=== PATIENT | male | born 1955 | race Caucasian/White ===

== ENCOUNTER → 2017-11-29 | Outpatient (CLI) | payer BC ==
[~2017-11-29] MED LIST: ATOR20 PO; CYCL10 PO; GABA100; IBUP800 PO; LISI20 PO; ROSU5; TRAM50 PO
== END | disposition home or self-care (01) ==
LOC: PLD 07:57 → LAB SHORT 07:57
DX: C43.62 Malignant melanoma of left upper limb, including shoulder (principal)
CPT/HCPCS: 88305

== ENCOUNTER → 2020-06-17 | Outpatient (CLI) | payer MEDICARE | END | disposition home or self-care (01) | LOC: LAB SHORT 13:02 → PLD 13:02 | DX: D04.5 Carcinoma in situ of skin of trunk (principal) | CPT/HCPCS: 88305 ==

== ENCOUNTER → 2020-07-08 | Outpatient (CLI) | payer MEDICARE | END | disposition home or self-care (01) | LOC: LAB SHORT 11:12 → PLD 11:12 | DX: D48.5 Neoplasm of uncertain behavior of skin (principal) | CPT/HCPCS: 88304 ==

== ENCOUNTER → 2021-02-09 | Outpatient (CLI) | payer MEDICARE | END | disposition home or self-care (01) | LOC: LAB 10:59 → LAB SHORT 10:59 | DX: D18.01 Hemangioma of skin and subcutaneous tissue (principal); L82.1 Other seborrheic keratosis | CPT/HCPCS: 88305 ==

== ENCOUNTER → 2021-03-24 | Outpatient (CLI) | payer MEDICARE | END | disposition home or self-care (01) | LOC: LAB SHORT 11:48 | DX: L91.8 Other hypertrophic disorders of the skin (principal); R23.4 Changes in skin texture | CPT/HCPCS: 88304 ==

== ENCOUNTER 2021-06-15 06:27 | Day surgery (SDC) | payer MEDICARE ==
[~2021-06-15] VITALS: Ht 167.6 cm; Wt 101.4 kg
== END 2021-06-15 09:12 | disposition home or self-care (01) ==
LOC: ORSCSDS 06:27
PROVIDERS: Surgery
PROC: 0WQF0ZZ Repair Abdominal Wall, Open Approach (ICD-10-PCS; principal; 2021-06-15 07:30)
DX: K42.9 Umbilical hernia without obstruction or gangrene (principal); K21.9 Gastro-esophageal reflux disease without esophagitis; E66.9 Obesity, unspecified; Z68.36 Body mass index [BMI] 36.0-36.9, adult; Z79.899 Other long term (current) drug therapy
CPT/HCPCS: J0690; J1100; J1885; J2370; J2405; J2704; J3010; J7120

== ENCOUNTER 2021-10-17 17:05 | Observation (INO) | payer MEDICARE ==
[~2021-10-17] VITALS: Ht 175.3 cm; Wt 99.5 kg
[~2021-10-17 17:05] MED LIST changes: -GABA100; +GABA100 PO
[2021-10-17] MEDS ORDERED: TRAM50 PO (17:48)
[2021-10-17] MEDS ORDERED: IBU800 MG PO (17:49)
[2021-10-17] MEDS ORDERED: TRAZ100 PO (17:49)
[2021-10-17] MEDS ORDERED: NEXLIZET 180-11 EACH PO (17:49)
[2021-10-17 18:42] LABS: Alanine Aminotransfer (ALT/SGP 24 U/L (12-78); Albumin, Blood 3.5 g/dL (3.4-5.0); Albumin/Globulin Ratio 1.1 (0.8-1.8); Alk Phos 68 U/L (50-136); Anion Gap 6 mmol/L (6-16); Aspartate Aminotrans (AST/SGOT 20 U/L (12-37); Bilirubin, Total 0.8 mg/dL (0.1-1.0); Blood Urea Nitrogen 12 mg/dL (8-24); Bun/Creatinine Ratio 12.8 (12.0-20.0); CO2, Blood 26 mmol/L (21-32); Calcium, Blood 8.5 mg/dL (8.5-10.1); Chloride, Blood 107 mmol/L (98-108); Creatinine, Blood 0.94 mg/dL (0.60-1.20); Globulin, Blood 3.1 g/dL (2.2-4.0); Glomerular Filtration Rate >60 (60-); Glucose, Blood 102 mg/dL (70-99); Sodium, Blood 139 mmol/L (136-145); Total Protein, Blood 6.6 g/dL (6.4-8.2)
[2021-10-17 18:58] LABS: BASOPHILS ABSOLUTE AUTO 0.02 K/mm3 (0.00-0.23); BASOPHILS PERCENT AUTO 0 % (0-2); EOSINOPHILS ABSOLUTE AUTO 0.02 K/mm3 (0.00-0.68); EOSINOPHILS PERCENT AUTO 0 % (0-6); Hematocrit 46.4 % (37.0-53.0); Hemoglobin 15.4 g/dL (13.5-17.5); IMMATURE GRAN ABSOLUTE AUTO 0.05 K/mm3 (0.00-0.10); IMMATURE GRAN PERCENT AUTO 0 % (0-1); LYMPHOCYTES ABSOLUTE AUTO 1.58 K/mm3 (0.84-5.20); LYMPHOCYTES PERCENT AUTO 11 % (21-46); MONOCYTES ABSOLUTE AUTO 0.52 K/mm3 (0.16-1.47); MONOCYTES PERCENT AUTO 4 % (4-13); Mean Corpuscular HGB 30.7 pg (26.0-34.0); Mean Corpuscular HGB Conc 33.2 g/dL (31.5-36.5); Mean Corpuscular Volume 92 fL (80-100); Mean Platelet Volume 9.4 fL (9.1-12.4); NEUTROPHILS ABSOLUTE AUTO 11.88 K/mm3 (1.96-9.15); NEUTROPHILS PERCENT AUTO 85 % (41-73); Platelet Count 333 K/mm3 (150-400); RDW Coefficient Variation 12.5 % (11.7-14.2); RDW Standard Deviation 42.8 fL (35.1-46.3); Red Blood Cell Count 5.02 M/mm3 (4.30-5.90); White Blood Cell Count 14.07 K/mm3 (4.00-11.30)
[2021-10-17 19:28] LABS: Influenza A, PCR NEGATIVE (NEGATIVE); Influenza B, PCR NEGATIVE (NEGATIVE); Resp Syncytial Virus, PCR NEGATIVE (NEGATIVE); SARS-Cov-2 (COVID-19) PCR, MMC NEGATIVE (NEGATIVE)
--- NOTE | 2021-10-17 22:00 | NUR ---
ASSUMED CARE PATIENT ARRIVED TO ICU 7 FROM ER ALERT AND ORIENTED X 4 AND ON ROOM AIR. PATIENT WAS ABLE TO STAND AND SELF TRANSFER TO ICU BED. TONGUE IS SWOLLEN AND SPEECH IS SLIGHTLY IMPAIRED D/T THIS, BUT STILL ABLE TO UNDERSTAND PATIENT AND SPO2 MAINTAINED IN MID 90'S. BELONGINGS PLACED IN CUPBOARD COMPARTMENT UPON ARRIVAL. REPORT COMPLETED WITH ED NURSE.
[2021-10-17] MEDS ORDERED: Lopressor 25 mg25 MG PO (22:14)
[2021-10-18 03:53] LABS: BASOPHILS PERCENT AUTO 0 % (0-2); EOSINOPHILS PERCENT AUTO 0 % (0-6); Hematocrit 45.9 % (37.0-53.0); IMMATURE GRAN ABSOLUTE AUTO 0.02 K/mm3 (0.00-0.10); IMMATURE GRAN PERCENT AUTO 0 % (0-1); LYMPHOCYTES ABSOLUTE AUTO 0.67 K/mm3 (0.84-5.20); LYMPHOCYTES PERCENT AUTO 7 % (21-46); MONOCYTES ABSOLUTE AUTO 0.08 K/mm3 (0.16-1.47); MONOCYTES PERCENT AUTO 1 % (4-13); Mean Corpuscular HGB 30.4 pg (26.0-34.0); Mean Corpuscular HGB Conc 32.7 g/dL (31.5-36.5); Mean Corpuscular Volume 93 fL (80-100); Mean Platelet Volume 9.5 fL (9.1-12.4); NEUTROPHILS ABSOLUTE AUTO 9.45 K/mm3 (1.96-9.15); NEUTROPHILS PERCENT AUTO 92 % (41-73); Platelet Count 316 K/mm3 (150-400); RDW Coefficient Variation 12.4 % (11.7-14.2); Red Blood Cell Count 4.93 M/mm3 (4.30-5.90); White Blood Cell Count 10.22 K/mm3 (4.00-11.30)
[2021-10-18 04:17] LABS: Alanine Aminotransfer (ALT/SGP 26 U/L (12-78); Albumin, Blood 3.3 g/dL (3.4-5.0); Albumin/Globulin Ratio 0.8 (0.8-1.8); Alk Phos 66 U/L (50-136); Anion Gap 5 mmol/L (6-16); Aspartate Aminotrans (AST/SGOT 24 U/L (12-37); Bilirubin, Total 0.7 mg/dL (0.1-1.0); Blood Urea Nitrogen 13 mg/dL (8-24); Bun/Creatinine Ratio 15.2 (12.0-20.0); CO2, Blood 25 mmol/L (21-32); Calcium, Blood 9.1 mg/dL (8.5-10.1); Chloride, Blood 108 mmol/L (98-108); Creatinine, Blood 0.86 mg/dL (0.60-1.20); Glomerular Filtration Rate >60 (60-); Glucose, Blood 155 mg/dL (70-99); Potassium, Blood 4.6 mmol/L (3.5-5.5); Sodium, Blood 138 mmol/L (136-145); Total Protein, Blood 7.3 g/dL (6.4-8.2)
--- NOTE | 2021-10-18 05:45 | NUR ---
SHIFT SUMMARY PATIENT DESATTED TO 89% WHILE SLEEPING; 2LPM VIA NC PLACED ON PATIENT WITH SPO2 IMPROVEMENT TO MID 90'S. O2 REMOVED ONCE PATIENT WAS AWAKE THIS MORNING. PATIENT REMAINED ALERT AND ORIENTED X 4 AND USED CALL LIGHT APPROPRIATELY. PATIENT WAS ABLE TO AMBULATE WITHOUT ASSISTANCE FROM BED TO TOILET AND BACK WITHOUT DIFFICULTY. TONGUE AND MOUTH SWELLING HAS GREATLY IMPROVED WITH MINIMAL EFFECT ON SPEECH. NO PRN MEDICATIONS GIVEN DURING SHIFT. LUNG SOUNDS REMAINED CLEAR AND PATIENT DENIED ANY BREATHING DIFFICULTIES. BEDSIDE SWALLOW EVAL COMPLETED AT BEGINNING OF SHIFT AND PASSED; COMPLETED TO ENSURE SAFE ADMINISTRATION OF MEDICATIONS WITH WATER. PATIENT STILL ON ICE CHIPS ONLY OTHERWISE. BT STILL HYPERACTIVE T/O WITH NO BM THIS SHIFT. SKIN REMAINS C/D/I. HR INCREASED TO 130'S WITH AMBULATION BUT QUICKLY RESOLVED WITH REST. RHYTHM REMAINED SINUS WITH OCCASSIONAL PVC'S. NO OTHER MAJOR CHANGES DURING SHIFT.
--- NOTE | 2021-10-18 07:25 | NUR ---
ASSUMPTION OF CARE RECEIVED REPORT FROM ORION MEDEL, ASSUMED CARE OF PATIENT. PATIENT SITTING UP IN BED, A/O. CLEAR SPEECH. DENIED DISCOMFORTS AT THIS TIME. MD AT BEDSIDE DISCUSSING PLAN FOR THE DAY. VERBALIZED HE WILL ORDER PATIENT A DIET, ASSESS HOW PATIENT TOLERATES EATING AND WILL PLAN FOR DISCHARGE LATER TODAY DEPENDING ON PATIENT'S STATUS AND MEDICATION CHANGES. PATIENT VERBALIZED UNDERSTANDING OF PLAN. AWAITING PHYSICIAN ORDERS.
--- NOTE | 2021-10-18 09:40 | NUR ---
BREAKFAST PATIENT TOLERATED BREAKFAST EATING 100% WITH NO DIFFICULTIES. NO SWELLING NOTED TO TONGUE OR THROAT, PATIENT DENIED SWELLING TO THROAT AND STATED IS FEELING BACK TO NORMAL. AM MEDICATIONS GIVEN ORDERED. VITALS REMAIN STABLE. CALL LIGHT WITHIN REACH.
[2021-10-18] MEDS ORDERED: EPIPEN0.3 MG/0.3 IM (11:38)
[2021-10-18] MEDS ORDERED: FAMO20 PO (11:38)
[2021-10-18] MEDS ORDERED: DIPH50 PO (11:38)
[2021-10-18] MEDS ORDERED: MEDROL4 M1 PO (11:41)
--- NOTE | 2021-10-18 12:42 | NUR ---
DISCHARGE PATIENT DISCHARGED TO HOME. 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 PRESCRIPTIONS CALLED INTO [facility] PER PATIENT'S REQUEST WITH SPECIFIC INSTRUCTIONS GIVEN TO PHARMACIST REGARDING MEDICATION DOSES. BILAT ARM PERIPHERAL IV'S D/C'D WITH CATHETERS INTACT. VITALS REMAINED STABLE AND NO SWELLING WAS NOTED ORALLY TO TONGUE OR THROAT. FOLLOW UP APPOINTMENT WAS ALSO MADE FOR PATIENT AT [facility] WITH DIRECTIONS FOR THIS APPOINTMENT.
== END 2021-10-18 12:50 | disposition home or self-care (01) ==
LOC: ER 17:05 → ICUW 17:06 → ICUE 17:06
PROVIDERS: Emergency Medicine; ADMIT Internal Medicine
DX: T78.3XXA Angioneurotic edema, initial encounter (principal); T46.4X5A Adverse effect of angiotensin-converting-enzyme inhibitors, initial encounter; I10 Essential (primary) hypertension; I25.10 Atherosclerotic heart disease of native coronary artery without angina pectoris; F17.210 Nicotine dependence, cigarettes, uncomplicated; Z20.822 Contact with and (suspected) exposure to COVID-19; Y84.8 Other medical procedures as the cause of abnormal reaction of the patient, or of later complication, without mention of misadventure at the time of the procedure; Z88.8 Allergy status to other drugs, medicaments and biological substances; Z85.820 Personal history of malignant melanoma of skin; Z87.442 Personal history of urinary calculi
CPT/HCPCS: 0241U; 36415; 80053; 85025; 96372; 96376; A9270; G0378; J0171; J1200; J1650; J2930

== ENCOUNTER 2022-01-11 09:22 | Observation (INO) | payer MEDICARE ==
[~2022-01-11] VITALS: Ht 167.6 cm; Wt 97.5 kg
[~2022-01-11 09:22] MED LIST changes: +DIPH50 PO; +EPIPEN0.3 MG/0.3 IM; +FAMO20 PO; +IBU800 MG PO; +Lopressor 25 mg25 MG PO; +MEDROL4 M1 PO; +NEXLIZET 180-11 EACH PO; +TRAZ100 PO
[2022-01-11 10:23] LABS: BASOPHILS ABSOLUTE AUTO 0.03 K/mm3 (0.00-0.23); BASOPHILS PERCENT AUTO 0 % (0-2); EOSINOPHILS ABSOLUTE AUTO 0.22 K/mm3 (0.00-0.68); EOSINOPHILS PERCENT AUTO 3 % (0-6); Hemoglobin 16.9 g/dL (13.5-17.5); IMMATURE GRAN ABSOLUTE AUTO 0.03 K/mm3 (0.00-0.10); IMMATURE GRAN PERCENT AUTO 0 % (0-1); LYMPHOCYTES ABSOLUTE AUTO 1.95 K/mm3 (0.84-5.20); LYMPHOCYTES PERCENT AUTO 28 % (21-46); MONOCYTES PERCENT AUTO 9 % (4-13); Mean Corpuscular HGB Conc 33.1 g/dL (31.5-36.5); Mean Corpuscular Volume 91 fL (80-100); Mean Platelet Volume 9.2 fL (9.1-12.4); NEUTROPHILS ABSOLUTE AUTO 4.05 K/mm3 (1.96-9.15); NEUTROPHILS PERCENT AUTO 59 % (41-73); Platelet Count 299 K/mm3 (150-400); RDW Coefficient Variation 12.4 % (11.7-14.2); RDW Standard Deviation 41.2 fL (35.1-46.3); Red Blood Cell Count 5.63 M/mm3 (4.30-5.90); White Blood Cell Count 6.88 K/mm3 (4.00-11.30)
[2022-01-11 10:29] LABS: Alanine Aminotransfer (ALT/SGP 35 U/L (12-78); Albumin, Blood 3.7 g/dL (3.4-5.0); Alk Phos 74 U/L (50-136); Anion Gap 5 mmol/L (6-16); Aspartate Aminotrans (AST/SGOT 19 U/L (12-37); Bilirubin, Total 0.5 mg/dL (0.1-1.0); Blood Urea Nitrogen 15 mg/dL (8-24); Bun/Creatinine Ratio 16.1 (12.0-20.0); CO2, Blood 27 mmol/L (21-32); Calcium, Blood 9.1 mg/dL (8.5-10.1); Chloride, Blood 107 mmol/L (98-108); Creatinine, Blood 0.93 mg/dL (0.60-1.20); Globulin, Blood 3.8 g/dL (2.2-4.0); Glomerular Filtration Rate >60 (60-); Glucose, Blood 108 mg/dL (70-99); Potassium, Blood 4.1 mmol/L (3.5-5.5); Sodium, Blood 139 mmol/L (136-145); Total Protein, Blood 7.5 g/dL (6.4-8.2)
[2022-01-11] MEDS ORDERED: EZET10 PO (10:31)
[2022-01-11] MEDS ORDERED: TAMS.4ER PO (10:32)
[2022-01-11 10:35] LABS: Source, Urine Clean Catch
[2022-01-11 10:46] LABS: Appearance, Urine Clear (Clear); Bilirubin, Urine Neg (Neg); Blood, Urine Neg (Neg); Color, Urine Yellow (P-Yellow); Glucose Qualitative, Urine Neg (Neg); Ketones, Urine Neg (Neg); Leukocyte Esterase, Urine Neg (Neg); Nitrite, Urine Neg (Neg); Protein, Urine Neg (Neg); Specific Gravity, Urine 1.015 (1.003-1.022); Urobilinogen, Urine NORM (Normal)
--- NOTE | 2022-01-11 18:36 | NUR ---
PATIENT ARRIVED TO ROOM AT 1755. ALERT AND ORIENTED. INDEPENDENT IN THE ROOM. REPORTS SOME RIGHT FLANK PAIN. RESTING ON BED. NPO AFTER MIDNIGHT FOR PLANNED IR PROCEDURE FOR RIGHT KIDNEY CYST TOMORROW 01/12/22. WILL REPORT TO CONTACT CENTER DIRECTOR RN.
--- NOTE | 2022-01-12 04:00 | NUR ---
SHIFT SUMMARY A/O X4. VITAL SIGNS STABLE. PAIN CONTROLLED WITH MEDICATIONS PER EMAR. IND IN ROOM. TOLERATED DINNER WITH NO N/V. NPO SINCE MIDNIGHT. PT VOIDING WELL. NO ACUTE CHANGES OVER NIGHT WILL CONTINUE TO MONITOR AND REPORT TO ONCOMING RN.
--- NOTE | 2022-01-12 16:30 | NUR ---
PT [facility] FOR PROCEDURE VIA W/C
--- NOTE | 2022-01-12 17:30 | NUR ---
POST DRAINAGE ARRIVES TO ROOM & TRANSFERS FROM WC TO BED w/ SBA. DRAIN SITE CDI w/ 2 SMALL PUNCTURE SITES TO R FLANK. NO BRUISING, REDNESS, OR DRAINAGE NOTED. ICE WATER & JELLO GIVEN.
--- NOTE | 2022-01-12 18:19 | NUR ---
UPDATE PT IS DOING WELL & REQUESTS TO GO HOME. TOLERATING BITES OF FOOF. DRAINAGE SITE WNL. CALL OUT TO MD. WILL DC LATER THIS EVENING.
--- NOTE | 2022-01-12 18:48 | NUR ---
DISCHARGE PT IS VERY EXCITED FOR DC HOME. TOLERATING BITES OF FOOD. VSS. AMBULATING EASILY. STATES PT ALREADY HAS AN APPOINTMENT w/ ONCOLOGY MONDAY & WILL CALL FOR F/U w/ [facility] TOMORROW. ESCORTED OUT VIA WC.
== END 2022-01-12 18:51 | disposition home or self-care (01) ==
LOC: ER 09:22 → SURS 09:23
PROVIDERS: Anesthesiology; ADMIT Family Medicine
DX: N28.1 Cyst of kidney, acquired (principal); R91.8 Other nonspecific abnormal finding of lung field; K22.89 Other specified disease of esophagus; Z88.8 Allergy status to other drugs, medicaments and biological substances; F17.290 Nicotine dependence, other tobacco product, uncomplicated; I10 Essential (primary) hypertension
CPT/HCPCS: 36415; 71260; 74177; 76937; 80053; 81003; 83690; 85025; 99152; 99153; A9270; C1769; C1894; J1170; J1885; J2250; J2405; J3010; J7030; J7040; Q9967

== ENCOUNTER → 2022-02-22 | Outpatient (CLI) | payer MEDICARE ==
[~2022-02-22] MED LIST changes: +EZET10 PO; +TAMS.4ER PO
== END | disposition home or self-care (01) ==
LOC: LAB SHORT 11:06 → PLD 11:06
DX: L85.9 Epidermal thickening, unspecified (principal)
CPT/HCPCS: 88305; 88312

== ENCOUNTER 2022-05-09 08:50 | Day surgery (SDC) | payer MEDICARE ==
[~2022-05-09] VITALS: Ht 170.2 cm; Wt 91.6 kg
[~2022-05-09 08:50] MED LIST changes: +ONDA4ODT SL; +PEPCID40 MG PO; +Percocet 5-3251 EACH PO
[2022-05-09] MEDS ORDERED: ACET500 PO (09:37)
--- NOTE | 2022-05-09 11:23 | NUR ---
Ambulatory in Day Surgery History, Chart, Medications and Allergies reviewed before start of procedure.Pre-Op teaching done. Pt verbalizes understanding. Discharged via wheelchair to private car for ride home.
--- NOTE | 2022-05-09 14:08 | NUR ---
LATE ENTRY: RADIOLOGY CALLED. REPORTED THAT TIP OF MEDIPORT IN RIGHT ATRIUM AND THAT THE RIGHT UPPER LOBE OF LUNG IS NOT INFLATED AT IT SHOULD BE. DR. MELO CALLED WITH REPORT. PT HAS RECENT H/O PNEUMONIA AND IS NOT SOB. ENCOURAGED IMPORATANCE OF C&DB AND IF ANYTHING CHANGES TO RETURN TO ER. Dressing to procedure site clean, dry, intact with no visible drainage, swelling, erythema or bruising noted. Discharge instructions reviewed with patient. Patient verbalizes understanding. Copy given to patient to take home. Discharged via wheelchair to private car for ride home.
== END 2022-05-10 00:27 | disposition home or self-care (01) ==
LOC: ORSCMMR 08:50 → ORD 10:00 → ORSCMMR 10:00
DX: C43.62 Malignant melanoma of left upper limb, including shoulder (principal); I25.10 Atherosclerotic heart disease of native coronary artery without angina pectoris; E78.5 Hyperlipidemia, unspecified; I10 Essential (primary) hypertension; Z79.899 Other long term (current) drug therapy; Z87.891 Personal history of nicotine dependence
CPT/HCPCS: 77001; A9270; C1788; J0690; J1100; J1642; J2001; J2250; J2405; J2704; J3010; J7120

== ENCOUNTER 2022-05-13 06:57 | Inpatient (IN) | payer MEDICARE ==
[~2022-05-13] VITALS: Ht 167.6 cm; Wt 88.3 kg
[~2022-05-13 06:57] MED LIST changes: +ACET500 PO
[2022-05-13 08:03] LABS: BASOPHILS ABSOLUTE AUTO 0.07 K/mm3 (0.00-0.23); BASOPHILS PERCENT AUTO 1 % (0-2); EOSINOPHILS ABSOLUTE AUTO 0.41 K/mm3 (0.00-0.68); EOSINOPHILS PERCENT AUTO 3 % (0-6); Hematocrit 49.7 % (37.0-53.0); Hemoglobin 16.5 g/dL (13.5-17.5); IMMATURE GRAN ABSOLUTE AUTO 0.09 K/mm3 (0.00-0.10); IMMATURE GRAN PERCENT AUTO 1 % (0-1); LYMPHOCYTES ABSOLUTE AUTO 2.59 K/mm3 (0.84-5.20); LYMPHOCYTES PERCENT AUTO 19 % (21-46); MONOCYTES ABSOLUTE AUTO 1.37 K/mm3 (0.16-1.47); MONOCYTES PERCENT AUTO 10 % (4-13); Mean Corpuscular HGB 29.6 pg (26.0-34.0); Mean Corpuscular HGB Conc 33.2 g/dL (31.5-36.5); Mean Corpuscular Volume 89 fL (80-100); NEUTROPHILS ABSOLUTE AUTO 8.81 K/mm3 (1.96-9.15); NEUTROPHILS PERCENT AUTO 66 % (41-73); Platelet Count 276 K/mm3 (150-400); RDW Coefficient Variation 12.6 % (11.7-14.2); RDW Standard Deviation 41.2 fL (35.1-46.3); Red Blood Cell Count 5.57 M/mm3 (4.30-5.90); White Blood Cell Count 13.34 K/mm3 (4.00-11.30)
[2022-05-13 08:24] LABS: Albumin, Blood 3.2 g/dL (3.4-5.0); Albumin/Globulin Ratio 0.7 (0.8-1.8); Bun/Creatinine Ratio 22.1 (12.0-20.0); Calcium, Blood 9.6 mg/dL (8.5-10.1); Creatinine, Blood 0.77 mg/dL (0.60-1.20); Globulin, Blood 4.3 g/dL (2.2-4.0); Potassium, Blood 3.8 mmol/L (3.5-5.5); Total Protein, Blood 7.5 g/dL (6.4-8.2)
[2022-05-13 08:45] LABS: Influenza A, PCR NEGATIVE (NEGATIVE); Influenza B, PCR NEGATIVE (NEGATIVE); Resp Syncytial Virus, PCR NEGATIVE (NEGATIVE); SARS-Cov-2 (COVID-19) PCR, MMC NEGATIVE (NEGATIVE)
--- NOTE | 2022-05-13 16:52 | NUR ---
ADMIT/SHIFT SUMMARY PATIENT ADMITTED FROM ER AT 1430. PATIENT SETTLED INTO ROOM. PATIENT ORIENTED TO CALL LIGHT AND TV CONTROL. PATIENT AT BEDSIDE DURING ADMISSION. ADMISSION COMPLETE. FLUIDS AND ABX STARTED. PATIENT DENIES PAIN, NAUSEA. PATIENT IS SHORT OF BREATH. PATIENT IS ON 3L VIA N/C, MAINTAINING SATS ABOVE 95%. CALLED RT FOR BREATHING TX, ADMINISTERED. PATIENT ALSO HAS HACKING, PRODUCTIVE COUGH. PATIENT HR HAS BEEN ELEVATED SINCE ADMISSION, 130-140. EVENING METOPROLOL GIVEN, NO EFFECT. NOTIFIED, NEW ORDERS. PATIENT IS IND IN ROOM. PATIENT IS EATING AND DRINKING WELL. PATIENT IS PLEASANT AND COOPERATIVE WITH CARE.
[2022-05-14 05:17] LABS: Hematocrit 46.6 % (37.0-53.0); Mean Corpuscular HGB 29.1 pg (26.0-34.0); Mean Corpuscular HGB Conc 32.2 g/dL (31.5-36.5); Mean Corpuscular Volume 90 fL (80-100); Mean Platelet Volume 9.1 fL (9.1-12.4); Platelet Count 240 K/mm3 (150-400); RDW Coefficient Variation 12.9 % (11.7-14.2); RDW Standard Deviation 42.8 fL (35.1-46.3); Red Blood Cell Count 5.16 M/mm3 (4.30-5.90); White Blood Cell Count 13.29 K/mm3 (4.00-11.30)
[2022-05-14 05:33] LABS: Bun/Creatinine Ratio 23.6 (12.0-20.0); Calcium, Blood 8.9 mg/dL (8.5-10.1); Creatinine, Blood 0.89 mg/dL (0.60-1.20)
--- NOTE | 2022-05-14 05:52 | NUR ---
SHIFT SUMMARY 67 YR M ADMITTED ON 05/13/22 FOR PNEUMONIA. FULL CODE. NO ACUTE CHANGES THIS SHIFT. PT IS STILL ON 3 L O2 BY NC AND HIS SATS ARE IN THE 90'S. HE HAS A HACKING COUGH OFF AND ON. HE HAS BEEN RECEIVING BREATHING TX'S FROM RT. HR WAS STAYING HIGH IN THE 130'S SO METOPROLOL WAS GIVEN AND HR CAME DOWN TO 106. CONTINUING W/ ABX Q6H. HE IS INDEPENDANT IN THE ROOM AND CALLS APPROPRIATELY FOR ASSISTANCE WHEN NEEDED. HE IS VERY PLEASANT AND COOPERATIVE WITH CARE.
--- NOTE | 2022-05-14 18:42 | NUR ---
SHIFT SUMMARY PTN A&O X4, PLEASANT. PRESENT SOME OF SHIFT. L AC PERIPHERAL LINE, GOOD ACCESS. IV ABX GIVEN. TELEMETRY SINUS TACHY 126 AT ONE POINT, RETURNED TO 90'S. O2 AT 3L NC, BASELINE AT HOME RA. REGULAR DIET, INDEPENDENT. PTN HAS HACKY PRODUCTIVE COUGH. TYLENOL ORDER FOR COMPLAINT OF JEREZ. UP TO CHAIR FOR PERIOD OF TIME. CONTINUE TO MONITOR.
[2022-05-15 05:29] LABS: BASOPHILS ABSOLUTE AUTO 0.05 K/mm3 (0.00-0.23); BASOPHILS PERCENT AUTO 1 % (0-2); EOSINOPHILS ABSOLUTE AUTO 0.42 K/mm3 (0.00-0.68); EOSINOPHILS PERCENT AUTO 4 % (0-6); Hematocrit 43.8 % (37.0-53.0); Hemoglobin 14.2 g/dL (13.5-17.5); IMMATURE GRAN ABSOLUTE AUTO 0.07 K/mm3 (0.00-0.10); IMMATURE GRAN PERCENT AUTO 1 % (0-1); LYMPHOCYTES ABSOLUTE AUTO 2.06 K/mm3 (0.84-5.20); LYMPHOCYTES PERCENT AUTO 19 % (21-46); MONOCYTES ABSOLUTE AUTO 1.53 K/mm3 (0.16-1.47); MONOCYTES PERCENT AUTO 14 % (4-13); Mean Corpuscular HGB 29.6 pg (26.0-34.0); Mean Corpuscular HGB Conc 32.4 g/dL (31.5-36.5); Mean Corpuscular Volume 91 fL (80-100); Mean Platelet Volume 9.3 fL (9.1-12.4); NEUTROPHILS ABSOLUTE AUTO 6.89 K/mm3 (1.96-9.15); NEUTROPHILS PERCENT AUTO 63 % (41-73); Platelet Count 217 K/mm3 (150-400); RDW Coefficient Variation 12.7 % (11.7-14.2); RDW Standard Deviation 42.8 fL (35.1-46.3); Red Blood Cell Count 4.79 M/mm3 (4.30-5.90); White Blood Cell Count 11.02 K/mm3 (4.00-11.30)
[2022-05-15 05:53] LABS: Albumin, Blood 2.4 g/dL (3.4-5.0); Anion Gap 7 mmol/L (6-16); Blood Urea Nitrogen 17 mg/dL (8-24); Bun/Creatinine Ratio 21.4 (12.0-20.0); CO2, Blood 27 mmol/L (21-32); Calcium, Blood 8.9 mg/dL (8.5-10.1); Chloride, Blood 104 mmol/L (98-108); Glomerular Filtration Rate 97 (60-); Glucose, Blood 113 mg/dL (70-99); Phosphorus, Blood 3.5 mg/dL (2.5-4.9); Potassium, Blood 3.7 mmol/L (3.5-5.5); Sodium, Blood 138 mmol/L (136-145)
--- NOTE | 2022-05-15 05:59 | NUR ---
SHIFT SUMMARY 67 YR M ADMITTED ON 05/13/22 FOR PNEUMONIA. FULL CODE. NO ACUTE CHANGES THIS SHIFT. PT STATES THAT HE IS FEELING BETTER BUT C/O HEADACHE. MEDICATED W/ TYLENOL PER EMAR WHICH WAS EFFECTIVE. PT STATES HE IS COUGHING UP ALOT OF "GREEN STUFF" AND THAT GETTING IT OUT IS MAKING HIS BREATHING EASIER. A COUPLE OF TIMES HIS HR JUMPED TO THE 130'S WITH ACTIVITY BUT CAME BACK DOWN WITH REST. VS ARE STABLE AND PT IS INDEPENDANT IN THE ROOM.
[2022-05-15] MEDS ORDERED: ONDA4ODT MM (13:45)
[2022-05-15] MEDS ORDERED: AZIT250 PO (13:45)
[2022-05-15] MEDS ORDERED: AMOCLA875 PO (13:45)
[2022-05-15] MEDS ORDERED: LACT PO (13:46)
[2022-05-15] MEDS ORDERED: GUAI600T33 PO (13:46)
[2022-05-15] MEDS ORDERED: Tessalon200 MG PO (13:48)
--- NOTE | 2022-05-15 15:54 | NUR ---
HOME O2 EVAL AND ORDER FAXED TO [facility]. CALL PLACED TO [facility] AND THEY WILL BE DELIVERING PORTABLE O2 TANK TO PATIENT AND WILL TAKE CONCENTRATOR TO HOME.
--- NOTE | 2022-05-15 16:36 | NUR ---
DISCHARGE SUMMARY PTN IMPROVEMENT IN COUGH WITH PRODUCTIVE SPUTUM. NOTED TO BE SOB TO BATHROOM. O2 HOME EVAL COMPLETED. PTN IV DISCONTINUED, COMPUTATIONAL GENETICIST REMOVED AND TELEMTRY TECH CONTACTED. PTN TO DICHARGE HOME WITH [facility] AT HOME FOR CONTINUED THERAPY. DISCHARGE PAPERWORK TO INCLUDE MEDICATION RECONCILLIATION WITH SPECIFIC MEDICATION INFORMATION ON NEW RX'S, DIAGNOSIS INFORMATION, AND FOLLOW-UP PLANS WITH OUTPATIENT PHYSICIANS. PTN VOICED UNDERSTANDING OF DISCHARGE PACKET INFORMATION, WAS TAKEN OUT BY WHEELCHAIR AND ACCOMPANIED BY HIS TO HOME.
== END 2022-05-15 16:31 | disposition home or self-care (01) | DRG 193 ==
LOC: ER 06:57 → MEDS 10:02 → ER 14:41 → MEDS 14:41
PROVIDERS: Emergency Medicine; Family Medicine; ADMIT Internal Medicine
DX: J18.9 Pneumonia, unspecified organism (principal); J96.01 Acute respiratory failure with hypoxia; C79.9 Secondary malignant neoplasm of unspecified site; Z20.822 Contact with and (suspected) exposure to COVID-19; F17.210 Nicotine dependence, cigarettes, uncomplicated; G47.00 Insomnia, unspecified; I25.10 Atherosclerotic heart disease of native coronary artery without angina pectoris; I10 Essential (primary) hypertension; Z87.442 Personal history of urinary calculi; Z87.19 Personal history of other diseases of the digestive system; Z98.890 Other specified postprocedural states; Z88.8 Allergy status to other drugs, medicaments and biological substances; Z79.899 Other long term (current) drug therapy
CPT/HCPCS: 0241U; 36415; 71045; 71260; 80048; 80053; 80069; 83880; 84145; 84484; 85025; 85027; 93005; 93010; 94640; 94664; 94760; 94761; 96365; 96375; 99285-25; A9270; J0456; J0696; J1650; J2543; J7030; J7050; Q9967

== ENCOUNTER → 2023-02-14 | Outpatient (CLI) | payer MEDICARE ==
[~2023-02-14] MED LIST changes: +AMOCLA875 PO; +AZIT250 PO; +GUAI600T33 PO; +LACT PO; +ONDA4ODT MM; +Tessalon200 MG PO
[2023-02-14 11:53] LABS: Free Thyroxine 1.29 ng/dL (0.70-1.60); Thyroid Stimulating Hormone 0.133 uIU/mL (0.360-4.800)
== END | disposition home or self-care (01) ==
LOC: LAB 11:23 → LAB SHORT 11:23
PROVIDERS: Internal Medicine Hematology & Oncology
DX: C43.9 Malignant melanoma of skin, unspecified (principal); I10 Essential (primary) hypertension
CPT/HCPCS: 84439; 84443

== ENCOUNTER 2023-09-14 01:42 | Day surgery (SDC) | payer MEDICARE ==
[2023-09-14 10:02] VITALS: BP 147/84
[2023-09-14] MEDS ORDERED: HYDHCL25 PO (10:14)
[2023-09-14] MEDS ORDERED: EUTHYROX175 MCG PO (10:17)
[2023-09-14] MEDS ORDERED: Millipred5 MG PO (10:17)
[2023-09-14] MEDS ORDERED: Vitamin D1000 UNI1 PO (10:17)
[2023-09-14] MEDS ORDERED: CENTRUM SILVER1 EAC2 PO (10:18)
[2023-09-14] MEDS ORDERED: ASCO500 PO (10:19)
[2023-09-14] MEDS ORDERED: OMEP20ER PO (10:19)
== END 2023-09-14 10:32 | disposition home or self-care (01) ==
LOC: ATC 01:42
DX: E78.5 Hyperlipidemia, unspecified (principal); I25.10 Atherosclerotic heart disease of native coronary artery without angina pectoris; C43.9 Malignant melanoma of skin, unspecified; Z86.010 Personal history of colon polyps
CPT/HCPCS: 96372; J1306

== ENCOUNTER 2024-05-10 10:49 | Inpatient (IN) | payer MEDICARE ==
[~2024-05-10] VITALS: Ht 167.6 cm; Wt 102.7 kg
[~2024-05-10 10:49] MED LIST changes: -Prednisone10 MG PO
[2024-05-10 12:06] LABS: BASOPHILS ABSOLUTE AUTO 0.04 K/mm3 (0.00-0.23); BASOPHILS PERCENT AUTO 0 % (0-2); EOSINOPHILS ABSOLUTE AUTO 0.33 K/mm3 (0.00-0.68); EOSINOPHILS PERCENT AUTO 3 % (0-6); Hematocrit 48.7 % (37.0-53.0); Hemoglobin 17.3 g/dL (13.5-17.5); IMMATURE GRAN ABSOLUTE AUTO 0.04 K/mm3 (0.00-0.10); IMMATURE GRAN PERCENT AUTO 0 % (0-1); LYMPHOCYTES ABSOLUTE AUTO 1.61 K/mm3 (0.84-5.20); LYMPHOCYTES PERCENT AUTO 15 % (21-46); MONOCYTES ABSOLUTE AUTO 1.41 K/mm3 (0.16-1.47); MONOCYTES PERCENT AUTO 14 % (4-13); Mean Corpuscular HGB 31.1 pg (26.0-34.0); Mean Corpuscular HGB Conc 35.5 g/dL (31.5-36.5); Mean Corpuscular Volume 88 fL (80-100); Mean Platelet Volume 10.2 fL (9.1-12.4); NEUTROPHILS ABSOLUTE AUTO 7.04 K/mm3 (1.96-9.15); NEUTROPHILS PERCENT AUTO 67 % (41-73); Platelet Count 198 K/mm3 (150-400); RDW Coefficient Variation 12.4 % (11.7-14.2); RDW Standard Deviation 39.7 fL (35.1-46.3); Red Blood Cell Count 5.56 M/mm3 (4.30-5.90); White Blood Cell Count 10.47 K/mm3 (4.00-11.30)
[2024-05-10 12:20] LABS: Albumin, Blood 2.9 g/dL (3.4-5.0); Albumin/Globulin Ratio 0.7 (0.8-1.8); Bilirubin, Total 2.3 mg/dL (0.1-1.0); Bun/Creatinine Ratio 10.8 (12.0-20.0); Calcium, Blood 9.1 mg/dL (8.5-10.1); Creatinine, Blood 1.11 mg/dL (0.60-1.20); Globulin, Blood 4.4 g/dL (2.2-4.0); Potassium, Blood 3.9 mmol/L (3.5-5.5); Total Protein, Blood 7.3 g/dL (6.4-8.2)
[2024-05-10] MEDS ORDERED: NS 1,000 ML IV SCH ×2 (13:00→14:15)
[2024-05-10] MEDS ORDERED: Ondansetron HCl 2 MG / ML 2ML Vial IV ONE (13:25)
[2024-05-10] MEDS ORDERED: Hydrocortisone Sod Succinate 100 MG Vial IV ONE ×2 (15:40→16:30)
[2024-05-10] MEDS ORDERED: Ondansetron HCl 2 MG / ML 2ML Vial IV PRN (16:05)
[2024-05-10] MEDS ORDERED: Mag Sulfate 1 GM/D5% 100ML 100 ML IV STA (16:29)
[2024-05-10 17:29] VITALS: BP 137/85
--- NOTE | 2024-05-10 18:19 | NUR ---
ADMISSION NOTE: PATIENT ARRIVED TO THE UNIT VIA GURNEY. HE WAS ALERT AND ABLE TO SELF TRANSFER TO THE BED. PATIENT SETTLED AND ORIENTED TO THE ROOM; FOOD AND WATER PROVIDED. PATIENT AMBULATED TO RESTROOM INDEPENDENTLY AND VOIDED. CALL MADE TO PATIENT'S VIJI AND NOTIFIED OF ADMISSION AND ROOM. PATIENT SPOKE WITH . PATIENT DOES HAVE MEDIPORT THAT IS NOT ACCESSED; SENT A MESSAGE TO DR. LEANDRO MILNER ACCESSING IT IF NEEDED; NO RESPONSE. PATIENT IN BED, CALL LIGHT WITHIN REACH, NO SIGNS OR SYMPTOMS OF DISTRESS, PLAN OF CARE ONGOING.
[2024-05-10] MEDS ORDERED: TRAZ100 PO (18:25)
--- NOTE | 2024-05-10 18:29 | NUR ---
CALL MADE TO DR. MANUEL REQUESTING TO ORDER PATIENT'S HOME DOSE OF TRAZODONE AT BEDTIME FOR THIS EVENING. PER DR. KALEB CARRANZA TO ADD TO EMAR.
[2024-05-10 19:22] VITALS: BP 141/73
[2024-05-10] MEDS ORDERED: TraZODone HCl 100 MG Tab PO SCH (21:00)
[2024-05-10] MEDS ORDERED: Acetaminophen 500 MG Tab PO PRN (22:20)
[2024-05-10] MEDS ORDERED: LORazepam 1 MG Tab PO PRN (22:20)
[2024-05-11 03:27] VITALS: BP 128/77
[2024-05-11 04:59] LABS: Magnesium, Blood 2.3 mg/dL (1.6-2.4)
--- NOTE | 2024-05-11 05:12 | NUR ---
SHIFT SUMMARY PATIENT IS POLITE AND COOPERATIVE WITH CARE. hE WAS ADMINISTERED TRAZADONE AT BEDTIME FOR SLEEP. HE WAS ABLE TO MAKE NEEDS KNOWN. 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 APPEARED TO SLEEP THROUGH THE THE NIGHT WITH OUT ISSUE. BED IN LOW POSITION, BED RAILS TIMES 2, CALL LIGHT WITHIN REACH.
[2024-05-11 05:44] LABS: Albumin, Blood 2.6 g/dL (3.4-5.0); Albumin/Globulin Ratio 0.7 (0.8-1.8); Bilirubin, Total 1.2 mg/dL (0.1-1.0); Calcium, Blood 8.5 mg/dL (8.5-10.1); Globulin, Blood 3.7 g/dL (2.2-4.0); Total Protein, Blood 6.3 g/dL (6.4-8.2)
[2024-05-11] MEDS ORDERED: Levothyroxine Sodium 0.175 MG TAB PO SCH (06:00)
[2024-05-11] MEDS ORDERED: Omeprazole 20 MG CapCR PO SCH (06:00)
[2024-05-11] MEDS ORDERED: Hydrocortisone Sod Succinate 100 MG Vial IV ONE (06:00)
[2024-05-11 07:57] VITALS: BP 133/97
[2024-05-11] MEDS ORDERED: Metoprolol Tartrate 25 MG Tab PO SCH (09:00)
[2024-05-11] MEDS ORDERED: HyDROXyzine HCl 25 MG Tab PO SCH (09:00)
[2024-05-11] MEDS ORDERED: Enoxaparin 40 MG/0.4 ML SYR SC SCH (09:00)
[2024-05-11] MEDS ORDERED: Gabapentin 300 MG Cap PO SCH (09:00)
[2024-05-11 15:23] VITALS: BP 137/80
--- NOTE | 2024-05-11 18:23 | NUR ---
SHIFT SUMMARY: PATIENT A&OX4/INDEPENDENT.NO EVENTS OR CHANGES WITH THE PATIENT THROUGOUHT THE SHIFT. HE HAS SLEPT THE ENTIRE SHIFT ALMOST WITH SHORT PERIODS OF AWAKEFULNESS TO EAT AND USE THE RESTROOM. PATIENT CHECKED IN ON HOURLY TO ENSURE NEEDS ARE BEING MET. PATIENT MAKES HIS NEEDS KNOWN; HE HASN'T NEEDED MUCH. HE IS PLEASANT AND COOPERATIVE. CURRENTLY IN BED, EATING DINNER, CALL LIGHT WITHIN REACH, NO SIGNS OR SYMPTOMS. PLAN OF CARE ONGOING; MORE THAN LIKELY DISCHARGING 05/12/24.
[2024-05-11 19:51] VITALS: BP 141/83
[2024-05-12 03:49] VITALS: BP 109/70
[2024-05-12 04:44] LABS: Bun/Creatinine Ratio 13.7 (12.0-20.0); Calcium, Blood 8.8 mg/dL (8.5-10.1); Creatinine, Blood 1.02 mg/dL (0.60-1.20); Potassium, Blood 3.6 mmol/L (3.5-5.5)
--- NOTE | 2024-05-12 05:32 | NUR ---
SHIFT SUMMARY PATIENT IS POLITE AND COOPERATIVE WITH CARE. hE WAS ADMINISTERED TRAZADONE AT BEDTIME FOR SLEEP. HE WAS ABLE TO MAKE NEEDS KNOWN. HE REQUESTED ZOFRAN FOR NAUSEA AND TOLERATED WELL. APPEARED TO SLEEP THROUGH THE THE NIGHT WITH OUT ISSUE. BED IN LOW POSITION, BED RAILS TIMES 2, CALL LIGHT WITHIN REACH.
[2024-05-12] MEDS ORDERED: PredniSONE 10 MG Tab PO SCH (06:00)
[2024-05-12 07:21] VITALS: BP 118/85
[2024-05-12] MEDS ORDERED: Prednisone10 MG PO (10:49)
--- NOTE | 2024-05-12 12:22 | NUR ---
PATIENT DISCHARGE: PATIENT DISCHARGED TO HOME THIS SHIFT. MEDICATION RECONCILIATION COMPLETED; MED LIST FAXED TO [facility]. DISCHARGE EDUCATION COMPLETED WITH PATIENT AND SPOUSE. PATIENT TRANSPORTED TO EXIT BY [facility] ST[facility] WITH WHEELCHAIR AT 1215. PATIENT DEPARTED [facility] VIA PRIVATE AUTO.
== END 2024-05-12 12:15 | disposition home or self-care (01) | DRG 424 ==
LOC: ER 10:49 → MEDS 16:00 → ENPENDDIS 05-12 11:03 → MEDS 05-12 12:15
PROVIDERS: Internal Medicine Endocrinology, Diabetes & Metabolism; ADMIT Internal Medicine Endocrinology, Diabetes & Metabolism
DX: E27.40 Unspecified adrenocortical insufficiency (principal); U07.1 COVID-19; E83.42 Hypomagnesemia; E87.1 Hypo-osmolality and hyponatremia; E66.3 Overweight; Z88.8 Allergy status to other drugs, medicaments and biological substances; M48.061 Spinal stenosis, lumbar region without neurogenic claudication; I10 Essential (primary) hypertension; G47.00 Insomnia, unspecified; E03.9 Hypothyroidism, unspecified; Z98.890 Other specified postprocedural states; Z87.891 Personal history of nicotine dependence; Z79.890 Hormone replacement therapy; C43.9 Malignant melanoma of skin, unspecified; C78.89 Secondary malignant neoplasm of other digestive organs; Z68.36 Body mass index [BMI] 36.0-36.9, adult
CPT/HCPCS: 36415; 71046; 71260; 80048; 80053; 82533; 83735; 83880; 84439; 84443; 84484; 85025; 93005; 93010; 96361; 96374; 96375; 99285-25; A9270; J1650; J1720; J2405; J3475; J7030; J7512; Q9967

== ENCOUNTER → 2024-05-10 | Outpatient (CLI) | payer MEDICARE ==
[~2024-05-10] MED LIST changes: +ASCO500 PO; +Ativan1 MG PO; +CENTRUM SILVER1 EAC2 PO; +EUTHYROX175 MCG PO; +HYDHCL25 PO; +HYDR1TAB94 PO; +Millipred5 MG PO; +OMEP20ER PO; +Prednisone10 MG PO; +Vitamin D1000 UNI1 PO
[2024-05-10 10:31] LABS: BASOPHILS ABSOLUTE AUTO 0.04 K/mm3 (0.00-0.23); BASOPHILS PERCENT AUTO 0 % (0-2); EOSINOPHILS ABSOLUTE AUTO 0.32 K/mm3 (0.00-0.68); EOSINOPHILS PERCENT AUTO 3 % (0-6); Hematocrit 47.9 % (37.0-53.0); Hemoglobin 17.4 g/dL (13.5-17.5); IMMATURE GRAN ABSOLUTE AUTO 0.03 K/mm3 (0.00-0.10); IMMATURE GRAN PERCENT AUTO 0 % (0-1); LYMPHOCYTES ABSOLUTE AUTO 1.52 K/mm3 (0.84-5.20); LYMPHOCYTES PERCENT AUTO 16 % (21-46); MONOCYTES ABSOLUTE AUTO 1.13 K/mm3 (0.16-1.47); MONOCYTES PERCENT AUTO 12 % (4-13); Mean Corpuscular HGB 30.7 pg (26.0-34.0); Mean Corpuscular HGB Conc 36.3 g/dL (31.5-36.5); Mean Corpuscular Volume 85 fL (80-100); Mean Platelet Volume 9.6 fL (9.1-12.4); NEUTROPHILS ABSOLUTE AUTO 6.61 K/mm3 (1.96-9.15); NEUTROPHILS PERCENT AUTO 69 % (41-73); Platelet Count 178 K/mm3 (150-400); RDW Coefficient Variation 12.3 % (11.7-14.2); RDW Standard Deviation 37.4 fL (35.1-46.3); Red Blood Cell Count 5.67 M/mm3 (4.30-5.90); White Blood Cell Count 9.65 K/mm3 (4.00-11.30)
[2024-05-10 10:40] LABS: Albumin, Blood 2.8 g/dL (3.4-5.0); Albumin/Globulin Ratio 0.7 (0.8-1.8); Bilirubin, Total 1.8 mg/dL (0.1-1.0); Bun/Creatinine Ratio 9.4 (12.0-20.0); Calcium, Blood 8.8 mg/dL (8.5-10.1); Creatinine, Blood 1.27 mg/dL (0.60-1.20); Globulin, Blood 3.9 g/dL (2.2-4.0); Magnesium, Blood 1.3 mg/dL (1.6-2.4); Potassium, Blood 3.6 mmol/L (3.5-5.5); Total Protein, Blood 6.7 g/dL (6.4-8.2)
== END ==
LOC: LAB 10:25 → LAB SHORT 10:25
PROVIDERS: Family Medicine
DX: R00.0 Tachycardia, unspecified (principal)
CPT/HCPCS: 80053; 83735; 85025

== ENCOUNTER 2024-12-09 02:56 | Day surgery (SDC) | payer MEDICARE ==
[~2024-12-09 02:56] MED LIST changes: +INCLISIRAN SODIUM 284 MG/1.5 ML SYRINGE SC SCH; +Prednisone10 MG PO
[2024-12-09 10:59] VITALS: BP 158/90
== END 2024-12-09 11:10 | disposition home or self-care (01) ==
LOC: ATC 02:56
DX: E78.5 Hyperlipidemia, unspecified (principal); I25.10 Atherosclerotic heart disease of native coronary artery without angina pectoris; I10 Essential (primary) hypertension; F17.290 Nicotine dependence, other tobacco product, uncomplicated; Z88.8 Allergy status to other drugs, medicaments and biological substances; Z79.890 Hormone replacement therapy; Z79.899 Other long term (current) drug therapy
CPT/HCPCS: 96372; J1306

== ENCOUNTER 2025-06-09 00:47 | Day surgery (SDC) | payer MEDICARE ==
[~2025-06-09 00:47] MED LIST changes: -INCLISIRAN SODIUM 284 MG/1.5 ML SYRINGE SC SCH
[2025-06-09] MEDS ORDERED: INCLISIRAN SODIUM 284 MG/1.5 ML SYRINGE SC SCH (07:05)
[2025-06-09 10:55] VITALS: BP 140/63
== END 2025-06-09 11:01 | disposition home or self-care (01) ==
LOC: ATC 00:47
DX: E78.5 Hyperlipidemia, unspecified (principal); I25.10 Atherosclerotic heart disease of native coronary artery without angina pectoris; I10 Essential (primary) hypertension; F17.210 Nicotine dependence, cigarettes, uncomplicated; Z79.899 Other long term (current) drug therapy; Z79.890 Hormone replacement therapy; Z88.8 Allergy status to other drugs, medicaments and biological substances
CPT/HCPCS: 96372; J1306